=== PATIENT | male | born 1940 | race Caucasian/White ===

== ENCOUNTER 2017-03-05 19:19 | Observation (INO) | payer MEDICARE, OTHER ==
[~2017-03-05] VITALS: Ht 182.9 cm; Wt 96.6 kg
--- NOTE | ~2017-03-05 | CON ---
PATIENT'S NAME: TORITO MATHIS [facility] AGE: 77 Y [address] ROOM: [address] [address] LOCATION: [facility] [place] ADMIT DATE: 03/05/2017 Consultation DISCHARGE DATE: FAMILY PHYSICIAN: PHYSICIAN, UNKNOWN ATTENDING PHYSICIAN: YUE OCONNELL DATE OF CONSULTATION: 03/06/2017 REFERRING PHYSICIAN: LUDIVINA BENTON MD REFERRING PROVIDER: Spencer Mccracken M.D. REASON FOR CONSULTATION: Abdominal pain. HISTORY OF PRESENT ILLNESS: This is a very pleasant, 77-year-old male, who was transferred from [place], [place]. The patient has a past medical history of atrial fibrillation, on Xarelto. He was evaluated in [place] for a 2-3 day complaint of abdominal pain located in the mid epigastric area as well as the right upper quadrant. The patient states that he had a bout of this same pain, "a few weeks ago" though contributed it to possible flu or something he ate. The pain though began Friday, it has not relieved at this point. He denies any associated nausea, vomiting, fever, or chills. In workup completed at an outside facility, it did show inflammatory changes around the pancreatic head and duodenum, possibly related to pancreatitis or duodenitis, underlying ulcer disease could not be excluded. Abdominal ultrasound showed mildly prominent gallbladder with positive Dick sign. There was minimal sludge, no gallstones or ductal dilation noted. Amylase was also elevated at 500. Lipase was normal. Liver function tests were also within normal limits. The patient was transferred to [facility] for presumed diagnosis of cholecystitis. The patient was seen and examined. He does state that the pain has relieved significantly. He continues complaining of some mild discomfort in the right upper quadrant. He again denies any current nausea, vomiting, fever, or chills. He states that his bowels are "normal" without any blood or melena. He has a bowel movement every day without any constipation or diarrhea. The patient denies any current chest pain, chest pressure, shortness of breath. PAST MEDICAL HISTORY: Hypertension, atrial fibrillation, on Xarelto. PAST SURGICAL HISTORY: Cysto. PATIENT'S NAME: [facility] AGE: 77 Y [address] ROOM: [address] [address] LOCATION: [facility] [place] ADMIT DATE: 03/05/2017 Consultation DISCHARGE DATE: FAMILY PHYSICIAN: PHYSICIAN, UNKNOWN ATTENDING PHYSICIAN: YUE OCONNELL SOCIAL HISTORY: The patient denies any tobacco, alcohol, or recreational drug use. FAMILY HISTORY: The patient's mother, daughter, brother, and sister, all have diabetes mellitus. He denies any known gastrointestinal diseases or cancers to his knowledge. ALLERGIES: NO KNOWN MEDICATION ALLERGIES. CURRENT MEDICATIONS: Please refer to the medication administration record. REVIEW OF SYSTEMS: All-point review of systems was completed. All were negative except for those identified in the history of present illness. PHYSICAL EXAMINATION: GENERAL: A pleasant 77-year-old gentleman lying in bed, who appears to be in no acute distress. VITAL SIGNS: Temperature 97.8, pulse of 87, respirations of 16, blood pressure 141/96, oxygen saturations 97% on room air. SKIN: [place], warm, dry. No jaundice. HEENT: Head is normocephalic and atraumatic. Pupils are equal, round, and reactive to light. Sclerae are clear. Nonicteric. Oral mucosa is pink and moist. No thyromegaly. NECK: Soft and supple. CARDIOVASCULAR: Regular. Normal S1, S2. RESPIRATORY: Respirations are even and unlabored. Lungs are clear to auscultation. ABDOMEN: Soft, round, mildly tender in the right lateral upper quadrant. Bowel sounds positive x4 quadrants. No rebound, rigidity, or guarding noted. MUSCULOSKELETAL: No muscle weakness or atrophy. EXTREMITIES: No clubbing, cyanosis, or edema. NEUROLOGIC: Grossly nonfocal. LABS AND DIAGNOSTICS: All labs and diagnostics were reviewed as above from the outside facility. Laboratory obtained at [facility] showed a white blood cell count of 7.7, hemoglobin of 14.1, hematocrit of 41.7, platelet of 158. Chemistry panel includes a glucose of 87, BUN of 14, creatinine 1.2, sodium PATIENT'S NAME: TORITO MATHIS [facility] AGE: 77 Y [address] ROOM: [address] [address] LOCATION: [facility] [place] ADMIT DATE: 03/05/2017 Consultation DISCHARGE DATE: FAMILY PHYSICIAN: PHYSICIAN, UNKNOWN ATTENDING PHYSICIAN: YUE OCONNELL 137, potassium of 3.4, chloride 102, CO2 of 25. Albumin of 3.7, AST of 27, ALT of 27, alkaline phosphatase of 50, total bilirubin is 1.7, phosphorus of 2.9. Amylase is 70, lipase is 327. ASSESSMENT/PLAN: This is a very pleasant 77-year-old gentleman who was transferred from [place], [place] with acute abdominal pain. In review of the patient's history as well as diagnostics, this possibly could be resolving cholecystitis/pancreatitis. Due to the findings of his CT scan, we will go forth with an upper endoscopy to rule out peptic ulcer disease. If upper endoscopy is normal, possible HIDA scan will be warranted to reevaluate for biliary dysfunction. This was discussed in depth with the patient. The risks, benefits, and alternatives were discussed with the patient per Dr. Ludivina Benton. Further recommendations will be given status post upper endoscopy. The patient will be kept n.p.o. until post procedure. Thank you for this consult. BUD HALL APRN FOR LUDIVINA BENTON MD MMF/modl /[id number] d: 03/06/17 1011 t: 03/12/17 1310, CONSULTATION REPORT
--- NOTE | ~2017-03-05 | HP ---
PATIENT'S NAME: TORITO MATHIS [facility] AGE: 77 Y [address] ROOM: [place] [address] LOCATION: [facility] [place] ADMIT DATE: 03/05/2017 History & Physical DISCHARGE DATE: FAMILY PHYSICIAN: PHYSICIAN, UNKNOWN ATTENDING PHYSICIAN: YUE OCONNELL DATE OF SERVICE: CHIEF COMPLAINT: Abdominal pain. HISTORY OF PRESENT ILLNESS: The patient is a transfer from [place], [place]. He is a 77-year-old male with a past medical history of atrial fibrillation, on Xarelto. He was evaluated in [place], [place] several times in the course of last 2 days with complaints of abdominal pain. The patient further qualifies this pain as sharp, crossing from the left to the right of his epigastrium, constant, and appears after he works outside and then drinks something cold. The pain is not relieved by any specific actions, but is exacerbated at night and keeps him awake. It is not associated with any nausea, vomiting, or meals. The patient is not on the acid patrice. A workup at the outside facility revealed a CT, which showed inflammatory change around the pancreatic head and duodenum, which can be pancreatitis or duodenitis. Underlying ulcer disease not excluded. An abdominal ultrasound showed mildly prominent gallbladder with positive Dick's sign. There was minimal sludge, no gallstones, and no ductal dilatation. Part of the workup also included biochemical markers with the amylase being 500, lipase being normal, and no AST or ALT elevation. There, alk phos was normal. The patient was sent to [facility] with a presumed diagnosis of cholecystitis. He denies having ever had an endoscopy nor is he on acid blockers. REVIEW OF SYSTEMS: Negative for any fevers, chills, chest pain, shortness of breath, or diaphoresis. PAST MEDICAL HISTORY: Essential hypertension, atrial fibrillation, on Xarelto. SOCIAL HISTORY: No significant surgical history. CURRENT MEDICATIONS: 1. Aspirin 81. 2. Cetirizine. PATIENT'S NAME: TORITO MATHIS [facility] AGE: 77 Y [address] ROOM: [place] [address] LOCATION: [facility] [place] ADMIT DATE: 03/05/2017 History & Physical DISCHARGE DATE: FAMILY PHYSICIAN: PHYSICIAN, UNKNOWN ATTENDING PHYSICIAN: YUE OCONNELL 3. Citalopram. 4. Hydrochlorothiazide. 5. Levothyroxine. 6. Lisinopril. 7. Bystolic. 8. Xarelto. SOCIAL HISTORY: Negative for any history of toxic habits. The patient is a retired [employer]. FAMILY HISTORY: Reviewed and is noncontributory due to known underlying etiology for his presentation. PHYSICAL EXAMINATION: VITAL SIGNS: Blood pressure 143/90, pulse 84, respirations 16, saturating 94% on room air, and temperature 98.2. GENERAL: Appears as a well-developed, well-nourished, elderly male, in no acute distress. NEUROLOGIC: Exam is nonfocal. SKIN: Warm and dry. EYES: Exam shows pupils are equal and reactive to light. LYMPHATICS: Exam shows no cervical lymphadenopathy. ENDOCRINE: Exam shows no thyromegaly. LUNGS: Clear to auscultation in all hsieh. HEART: Rate is regular. No appreciable murmurs, gallops, or rubs. GI: There is a right upper quadrant as well as left quadrant mild tenderness without rebound or guarding. There is indeed a positive Dick sign. There are normoactive sounds with slight abdominal tympany. : Reveals no costovertebral angle tenderness. VASCULAR: A 2+ pedal pulses. MUSCULOSKELETAL: Exam is unremarkable. PSYCHIATRIC: Exam reveals appropriate mood, cognition, and affect. LABORATORY DATA: Studies are as described in the HPI. ASSESSMENT AND PLAN: This is a 77-year-old male who is being admitted with: 1. Abdominal pain of slightly confusing etiology. However, based on normal LFTs, unremarkable common bile duct, and no gallstones as well as the nature of his pain, peptic ulcer disease is on top of my differential. We will begin the patient on intravenous proton pump inhibitors and put him on a clear liquid diet today. He will be made n.p.o. in anticipation of Gastroenterology consultation in the morning. We will defer to our PATIENT'S NAME: TORITO MATHIS [facility] AGE: 77 Y [address] ROOM: [address] [address] LOCATION: [facility] [place] ADMIT DATE: 03/05/2017 History & Physical DISCHARGE DATE: FAMILY PHYSICIAN: PHYSICIAN, UNKNOWN ATTENDING PHYSICIAN: YUE OCONNELL Gastroenterology consult to decide on when an upper endoscopy would be appropriate in lieu of his Xarelto use. Last time, he used Xarelto was just about 24 hours ago from now. 2. Paroxysmal atrial fibrillation. We will continue the patient on his rate control and hold off on Xarelto as above. 3. Essential hypertension. We will continue him on his current antihypertensive. 4. Symptomatic control. We will provide him with Mylanta for his abdominal pain as well as gentle amount of Tylenol versus opioids as needed. 5. The patient's daughter requested that we check him for diabetes and we will do that. 6. Additional management will depend on clinical course. Time dedicated to this patient encounter is 35 minutes. MD BARTOLO ZAIDI/orly /[id number] D: [id number] T: [id number] HISTORY & PHYSICAL
[2017-03-05] MEDS ORDERED: ASPIRIN LO-DOSE81 MG PO (20:38)
[2017-03-05] MEDS ORDERED: CELEXA20 MG PO (20:42)
[2017-03-05] MEDS ORDERED: HYDRODIURIL25 MG PO (20:43)
[2017-03-05] MEDS ORDERED: LEVOTHROID(SYN75 MCG PO (20:44)
[2017-03-05] MEDS ORDERED: BYSTOLIC10 MG PO (20:44)
[2017-03-05] MEDS ORDERED: PRINIVIL (ZESTR20 MG PO (20:44)
[2017-03-05] MEDS ORDERED: ZYRTEC10 M3 PO (20:48)
[2017-03-05] MEDS ORDERED: ZOCOR20 MG PO (20:49)
[2017-03-05] MEDS ORDERED: FLEXERIL10 MG PO (20:51)
[2017-03-05] MEDS ORDERED: NAPROSYN250 MG PO (20:52)
[2017-03-05] MEDS ORDERED: XARELTO20 MG PO (20:53)
[2017-03-06 04:51] LABS: BASOPHIL % 0.2 %; EOSINOPHIL # 0.2 K/uL (0.0-0.5); EOSINOPHIL % 2.1 %; HEMATOCRIT 41.7 % (37.0-53.0); HEMOGLOBIN 14.1 g/dL (11.0-16.0); IMMATURE GRANULOCYTE % 0.3 %; LYMPHOCYTE # 1.8 K/uL (0.8-4.0); MCH 30.4 pg (27.0-34.0); MCHC 33.8 gm/dL (32.0-36.5); MCV 89.9 fl (83.0-98.0); MONOCYTE # 1.1 K/uL (0.0-1.0); MONOCYTE % 10.5 %; MPV 9.4 fl (9.4-12.4); NEUTROPHIL # (ANC) 7.5 K/uL (1.4-9.0); NEUTROPHIL % 69.9 %; NRBC % 0 /100WBC (0-0.00); PLATELET COUNT 158 K/uL (150-450); RBC 4.64 M/uL (3.50-5.50); RDW-CV 12.3 % (11.9-14.6); WBC 10.7 K/uL (4.0-11.0)
[2017-03-06 05:19] LABS: ALBUMIN 3.7 gm/dL (3.5-5.0); ANION GAP 13.4 (10.0-19.0); CALCIUM 8.6 mg/dL (8.5-10.5); CREATININE 1.2 mg/dL (0.6-1.3); MAGNESIUM 1.8 mg/dL (1.8-2.6); PHOSPHORUS 2.9 mg/dL (2.5-4.9); POTASSIUM 3.4 mMol/L (3.7-5.1); TOTAL BILIRUBIN 1.7 mg/dL (0.0-1.5); TOTAL PROTEIN 7.7 g/dL (6.0-8.4)
[2017-03-07] MEDS ORDERED: PROTONIX40 MG PO (13:14)
[2017-03-07 13:47] LABS: ANION GAP 12.5 (10.0-19.0); CREATININE 1.2 mg/dL (0.6-1.3); POTASSIUM 3.5 mMol/L (3.7-5.1)
== END 2017-03-07 16:16 | disposition disaster alternative care site (69) ==
LOC: GMSU 19:19
PROVIDERS: Hospitalist; ADMIT Internal Medicine
PROC: 0DB78ZX Excision of Stomach, Pylorus, Via Natural or Artificial Opening Endoscopic, Diagnostic (ICD-10-PCS; principal; 2017-03-06)
DX: K29.50 Unspecified chronic gastritis without bleeding (principal); K44.9 Diaphragmatic hernia without obstruction or gangrene; F03.90 Unspecified dementia, unspecified severity, without behavioral disturbance, psychotic disturbance, mood disturbance, and anxiety; M19.90 Unspecified osteoarthritis, unspecified site; I10 Essential (primary) hypertension; I48.0 Paroxysmal atrial fibrillation; Z79.82 Long term (current) use of aspirin; Z79.899 Other long term (current) drug therapy
CPT/HCPCS: A9537; C9113; G0378; J7030